=== PATIENT | female | born 1975 | race Caucasian/White ===

== ENCOUNTER 2016-06-20 18:58 | Emergency (ER) | payer OTHER ==
[~2016-06-20] VITALS: Ht 172.7 cm; Wt 80.7 kg
[~2016-06-20 18:58] MED LIST: PANTOPRAZOLE SO40 MG PO; PRENATAL TABLE1 EAC3 PO; ZANTAC150 MG PO
[2016-06-20 20:03] VITALS: BP 146/107
== END 2016-06-20 20:04 | disposition home or self-care (01) ==
LOC: EME 18:58
DX: S06.0X9A Concussion with loss of consciousness of unspecified duration, initial encounter (principal); W10.9XXA Fall (on) (from) unspecified stairs and steps, initial encounter; F10.129 Alcohol abuse with intoxication, unspecified; K21.9 Gastro-esophageal reflux disease without esophagitis
CPT/HCPCS: 70450; 99281; 99284

== ENCOUNTER 2017-08-10 10:25 | Emergency (ER) | payer OTHER ==
[~2017-08-10] VITALS: Ht 172.7 cm; Wt 81.8 kg
[2017-08-10 10:44] LABS: HEMATOCRIT 41.2 % (36.0-46.0); HEMOGLOBIN 14.3 G/DL (11.9-15.5); MCH 31.8 PG (29.0-34.0); MCHC 34.7 G/DL (30.0-36.0); MCV 91.8 FL (83-99); PLATELET COUNT 214 K/uL (156-360); RBC DIS.WIDTH-CV 12.3 % (11.8-14.6); RBC DIS.WIDTH-SD 41.2 % (39-53); RED BLOOD COUNT 4.49 M/uL (3.80-5.20); WHITE BLOOD COUNT 4.8 K/uL (4.1-10.2)
[2017-08-10 10:53] LABS: CHLORIDE 109 mEq/L (99-109); POTASSIUM 4.6 mEq/L (3.7-5.4); SODIUM 141 mEq/L (136-147)
[2017-08-10 10:55] LABS: GLUCOSE 97 mg/dL (70-99)
[2017-08-10 10:59] LABS: CREATININE 0.8 mg/dL (0.6-1.3); GFR ESTIMATE (CALCULATED) > 59 mL/min/
[2017-08-10 11:00] LABS: UREA NITROGEN (BUN) 11 mg/dL (9-23)
[2017-08-10 11:05] LABS: TROP-I INTERPRETATION NEGATIVE; TROPONIN-I < 0.01 ng/mL (0.0-0.30)
[2017-08-10 11:07] LABS: QUANTITATIVE HCG < 4.0 MIU/ML
[2017-08-10 11:43] LABS: ALBUMIN 4.2 g/dL (3.2-4.8)
[2017-08-10 11:46] LABS: TOTAL PROTEIN 6.9 g/dL (6.4-8.3)
[2017-08-10 11:48] LABS: TOTAL BILIRUBIN 0.7 mg/dL (0.0-1.0)
[2017-08-10 11:49] LABS: ALKALINE PHOSPHATASE 65 IU/L (3-129)
[2017-08-10 11:51] LABS: AST (GOT) 20 IU/L (2-34); DIRECT BILIRUBIN 0.3 mg/dL (0.0-0.3)
[2017-08-10 11:52] LABS: ALT (GPT) 42 IU/L (3-49); LIPASE 12 U/L (1.0-51.0)
[2017-08-10 14:10] LABS: TROP-I INTERPRETATION NEGATIVE; TROPONIN-I < 0.01 ng/mL (0.0-0.30)
[2017-08-10 15:20] VITALS: BP 132/94
== END 2017-08-10 15:21 | disposition home or self-care (01) ==
LOC: EME 10:25
PROVIDERS: Physician Assistant
DX: R07.9 Chest pain, unspecified (principal); K21.9 Gastro-esophageal reflux disease without esophagitis; M54.12 Radiculopathy, cervical region; R51 Headache; R68.84 Jaw pain; R53.1 Weakness; M54.6 Pain in thoracic spine; Z90.49 Acquired absence of other specified parts of digestive tract
CPT/HCPCS: 71046; 80048; 80076; 83690; 84484; 84702; 85027; 85379; 93005; 99281; 99284